=== PATIENT | female | born 1975 | race Caucasian/White ===

== ENCOUNTER 2020-01-31 10:00 | Outpatient (RCR) | payer SELFPAY ==
--- NOTE | 2020-01-25 16:28 | HP.PTEVAL ---
Patient's Visit Information RANJIT ARTEAGA is a 44 year old F referred to Physical Therapy by Dr. Rafat Gramajo MD with a diagnosis of Cervicalgia, LBP, Thoracic pain, Segmental and somatic c-spine, L-spine. Date of Evaluation: 01/25/20 Physical Therapist: ABBY Miranda - Visit Plan Frequency: 2x /Week Duration: 4 Weeks Plan: Pt is doing Glut bridges, clam shells, deadbugs, Planks (forearm), box squat to toilet (3 X 30), lifts with 2.5#, and chin tucks at home and I did give her mid rows with green t-band today. 2X/ week for 1 hour for 4 weeks....for gradual light to moderate core stability, neck isometrics, postural exercises, scapular strength - Subjective Pt has an extreme head posture. He was severly injured by a chiropractor in [place]. She started see a PT and was severly injured by her with dry needling. The second chiropractor injured her with DN at T12. She is left with extreme forward head posture... the PT was a dry needle freak and did things I did not want her to. She saw a couple other PT's that were awful and she did DN to the back of her neck.... she now has FW head posture. Her QL were DN and now bad move. Saw another Chiropractor and they were terrible and also did DN. She now found another chiropractor in [place] last week and they were amazing.... they are doing manual adjustmets. Neck current symptoms... extremely fw head posture. messing with her throat and tugging esophogus and stomach and can not wear a mask due to pulling on her ears. The chiropractor did some adjust ments and her jaw and fw head goes back into alignment. She feels she needs strength with neck and paraspinals. Neck pain 1/[address] and the head rest pushes her fw and makes her very uncomfortable. She reports that she has no arm and hand N&T or weakness. Thoracic pain... she reports that the PT used a metal things (graston) on her and she moved her rib cage and the chiropractor had to put it back in place. Has been giving her pain since Chiropractor hurt her in [place]. Since then it has been a mess. L-spine pain. She feels is a result of what is going on above with T 12 and R paraspinal pain. She reports weirdness down there. She feels that her pain is more from the hips. Glut bridges, clam shells, deadbugs, Planks (forearm), box squat to toilet (3 X 30), lifts with 2.5#, and chin tucks. Pt feels that she needs stabiliy in her hips and workouts for neck and thoracic but not she what she will do there. She is big into nutrition and gut mircrobiom and will not take meds unless needed. She was not sleeping until saw this last Chiropractor.... now is sleeping again. Those Chiropractors are awsome. Pt can not sit... bothers her SI joints right now. Tries not to sit cause of posture. She is not working. - Pain neck pain Pain Intensity (Out of 10): 0 Thoracic pain Pain Intensity (Out of 10): 2 Lumbar pain Pain Intensity (Out of 10): 0 - Objective L-spine Trunk AROM: Flex 50%, Ext 25%, Rot 10% (I dont like to rotate), SB B 25%. C-spine AROM: flex 50%, ext 50%, Rot B 50%, SB B 25%. UE MMT: flex, abd 4-/5, ER/IR 3+/5. LE MMT: B hip flex 4-5, B knee ext 4/5, B knee flex 4-/5, B hip abd 4-/5, B hip ext 4-/5. Pt is able to walk on heels and toes but mentions that she does not want to walk on TOes due to increase pull on QUADS. -SLUMP test B. Patellar DTR's 2+/3 B and Bicep relfexes 2+/3 B. Posture: Sits with erect posture, possible slight head posture. Mid Rows with green t-band 1 X 10 and it increased anterior chest pain... advised to not pull back so far until she gets used to it. - Goals Goal 1:: I HEP (Home exercise program) Goal Time Frame: 4-6 Weeks Goal 2:: Increase B UE and LE strength by 1/2 muscle grade (at time of the eval: UE MMT: flex, abd 4-/5, ER/IR 3+/5. LE MMT: B hip flex 4-5, B knee ext 4/5, B knee flex 4-/5, B hip abd 4-/5, B hip ext 4-/5. Pt is able to walk on heels and toes but mentions that she does not want to walk on TOes due to increase pull on QUADS), Goal Time Frame: 4-6 Weeks Goal 3:: Increase L-spine AROM by 25% without pain. (at time of eval: L-spine Trunk AROM: Flex 50%, Ext 25%, Rot 10% (I dont like to rotate), SB B 25%). Goal Time Frame: 4-6 Weeks Goal 4:: Increase C-spine AROM by 25% each plane (at time of eval: C-spine AROM: flex 50%, ext 50%, Rot B 50%, SB B 25%). Goal Time Frame: 4-6 Weeks Goal 5:: Pt to feel improvement in her posture to return to baseline posture per her subjective. Goal Time Frame: 4-6 Weeks - Rehabilitation Potential Rehabilitation Potential: Good - Anticipated Interventions Patient/Client Instruction: Educate patient on: Condition, Plan of Care For the Purpose of:: To decrease pain, To increase ROM, To improve nutrient delivery to tissue, To improve muscle performance and motor function, To improve ability to perform ADL's, To increase tolerance to activity/condition/position, To improve performance and independence with ADL's, To decrease level of supervision to perform tasks, To improve ability of physical actions for home/community/work/leisure, To improve gait and locomotor functions, To improve health of tissue, To decrease soft tissue restriction, To increase flexibility/ROM Therapeutic Exercise to Include: Strength training, Body mechanics, Postural training, Gait and locomotor training, Active ROM, Dynamic Lumbar Stabilization, Scapular Strength/Stabilization For the Purpose of:: To decrease pain, To increase ROM, To improve nutrient delivery to tissue, To improve muscle performance and motor function, To improve ability to perform ADL's, To increase tolerance to activity/condition/position, To improve performance and independence with ADL's, To improve ability of physical actions for home/community/work/leisure, To improve health of tissue, To decrease soft tissue restriction, To increase flexibility/ROM, To improve endurance Thank you for the opportunity to evaluate your patient. For Medicare and Medicare HMO plans, please review the plan of care and approve it. It will need to be FAXED BACK to us at [phone] for Medicare purposes. For Medicare only, by signing this I certify the plan of care. Please let me know if there are questions or concerns regarding this plan of care. Physician Signature: Date:
--- NOTE | 2020-02-07 09:13 | HP.PTDCSUM ---
It has been my pleasure to treat RANJIT ARTEAGA referred by Dr. Rafat Gramajo MD, with the diagnosis of Cervicalgia, LBP, Thoracic pain, Segmental and somatic c-spine, L-spine for a total of 2 visit(s). Discharge Date: 02/07/20 Please see the following information for a summary of their discharge status. Subjective: Pt did not like the band... she has one with handles and has been using that at home.. Used it.... it was 5#. She went to lick her front teeth and she had some increase chest pain and jaw pain. She has been focusing on drawiing her shoulder blades down but not to far because it irritates her T12 area. She feels that the chin tucks and the mid rows are going well. She did her best workout last time... She has been doing 3 X 25 Glut bridges and squats and lifts with a very light band and on clams 3X 15. She has some burning thoracic pain and thinks it is from her jaw. neck pain Pain Intensity (Out of 10): 1 Thoracic pain Pain Intensity (Out of 10): 1 Lumbar pain Pain Intensity (Out of 10): 1 Jaw Pain Intensity (Out of 10): 2 Objective/Function: clam shells.. had to correct form as hips were rotated too far fw and scapular rotated to far BW. Pt has good form and moves at a good pace. Goal 1:: I HEP (Home exercise program) Goal 2:: Increase B UE and LE strength by 1/2 muscle grade (at time of the eval: UE MMT: flex, abd 4-/5, ER/IR 3+/5. LE MMT: B hip flex 4-5, B knee ext 4/5, B knee flex 4-/5, B hip abd 4-/5, B hip ext 4-/5. Pt is able to walk on heels and toes but mentions that she does not want to walk on TOes due to increase pull on QUADS), Goal 3:: Increase L-spine AROM by 25% without pain. (at time of eval: L-spine Trunk AROM: Flex 50%, Ext 25%, Rot 10% (I dont like to rotate), SB B 25%). Goal 4:: Increase C-spine AROM by 25% each plane (at time of eval: C-spine AROM: flex 50%, ext 50%, Rot B 50%, SB B 25%). Goal 5:: Pt to feel improvement in her posture to return to baseline posture per her subjective. Plan: Look at psoas flexibility. Pt is doing Glut bridges, clam shells, deadbugs, Planks (forearm), box squat to toilet (3 X 30), lifts with 2.5#, and chin tucks at home and I did give her mid rows with green t-band today. 2X/ week for 1 hour for 4 weeks....for gradual light to moderate core stability, neck isometrics, postural exercises, scapular strength Discharge Comments: DC per pts new If there are questions or concerns regarding this patient's physical therapy, please feel free to call me at [phone]. Thank you for the referral of this patient. Sincerely, Peri Warren, MPT
== END 2020-01-31 19:00 | disposition home or self-care (01) ==
LOC: PT 10:00
PROVIDERS: PCP Family Medicine; Referring Provider Chiropractor; Visit Provider Chiropractor
DX: M99.01 Segmental and somatic dysfunction of cervical region (principal); M99.03 Segmental and somatic dysfunction of lumbar region; M99.02 Segmental and somatic dysfunction of thoracic region; M99.05 Segmental and somatic dysfunction of pelvic region
CPT/HCPCS: 97110; 97162